=== PATIENT | male | born 1945 | race Caucasian/White ===

== ENCOUNTER → 2022-07-29 | Outpatient (CLI) | payer OTHER | LOC: M PLAIMG 12:03 | PROVIDERS: ATTEND Student in an Organized Health Care Education/Training Program | DX: F03.90 Unspecified dementia, unspecified severity, without behavioral disturbance, psychotic disturbance, mood disturbance, and anxiety (principal) ==

== ENCOUNTER 2022-08-12 07:36 | Inpatient (IN) | payer OTHER, MEDICARE ==
[~2022-08-12] VITALS: Ht 167.6 cm; Wt 81.0 kg
[2022-08-12] MEDS ORDERED: ACETAMINOPHEN TAB 650MG DOSE (2X325MG) PO ONE (08:25)
[2022-08-12 08:45] LABS: BASO % 0.2 % (0.0-1.0); HEMATOCRIT 35.1 % (42.0-52.0); HEMOGLOBIN 11.9 g/dl (13.5-17.5); LYMPH # 0.5 10^3/uL (1.5-5.0); LYMPH % 10.6 % (24.0-44.0); MEAN CORPUSCULAR HEMOGLOBIN 29.9 pg (27.0-33.0); MEAN CORPUSCULAR HGB CONC 33.9 g/dl (32.0-36.5); MEAN CORPUSCULAR VOLUME 88.2 fl (80.0-96.0); MONO # 0.5 10^3/uL (0.0-0.8); NEUTROPHILS # 3.8 10^3/uL (1.5-8.5); NEUTROPHILS % 77.8 % (36.0-66.0); PLATELET COUNT, AUTOMATED 106 10^3/uL (150-450); RED BLOOD COUNT 3.98 10^6/uL (4.30-6.10); WHITE BLOOD COUNT 4.9 10^3/uL (4.0-10.0)
[2022-08-12 09:21] LABS: ALBUMIN 3.2 G/DL (3.2-5.2)
[2022-08-12 09:26] LABS: CALCIUM LEVEL 8.2 MG/DL (8.3-10.6)
[2022-08-12 09:28] LABS: BILIRUBIN,DIRECT 0.3 MG/DL (<0.4); BILIRUBIN,TOTAL 0.6 MG/DL (0.3-1.2); CREATININE FOR GFR 1.37 MG/DL (0.70-1.30); GLOMERULAR FILTRATION RATE 53.8 (>42)
[2022-08-12] MEDS ORDERED: NS 500 ML IV ONE (10:40)
[2022-08-12 11:35] LABS: INR 1.09; PARTIAL THROMBOPLASTIN TIME 29.9 SECONDS (24.8-34.2); PROTHROMBIN TIME 14.3 SECONDS (12.5-14.5)
[2022-08-12] MEDS: PANTOPRAZOLE 40MG VIAL IV SCH (12:15)
[2022-08-12 12:18] LABS: FERRITIN 254.9 NG/ML (10.5-307.3)
[2022-08-12] MEDS ORDERED: ASPI81CH33 PO ×2 (12:43→13:18)
[2022-08-12] MEDS ORDERED: REMDESIVIR 200 MG in NS 250 ML IV ONE (13:00)
[2022-08-12] MEDS ORDERED: BUPR75TA5 PO (13:18)
[2022-08-12] MEDS ORDERED: GLIP5TAB20 PO (13:18)
[2022-08-12] MEDS ORDERED: ATOR40TA75 PO (13:18)
[2022-08-12] MEDS ORDERED: MEMA10TA19 PO (13:18)
[2022-08-12] MEDS ORDERED: METF-877 PO (13:18)
[2022-08-12] MEDS ORDERED: FLOM0.4C39 PO (13:18)
[2022-08-12] MEDS ORDERED: HYDR-3490 PO (13:18)
[2022-08-12] MEDS ORDERED: SERT25TA85 PO (13:18)
[2022-08-12] MEDS ORDERED: DONE10TA90 PO (13:18)
[2022-08-12] MEDS ORDERED: LISI20TA33 PO (13:18)
[2022-08-12] MEDS ORDERED: PATIENT COMMENT (13:19)
[2022-08-12] MEDS ORDERED: HOME MED LIST COMPLETE! XX SCH (13:20)
[2022-08-12] MEDS ORDERED: GLUCAGON INJ 1MG VIAL SC PRN (13:40)
[2022-08-12] MEDS ORDERED: GLUCOSE 4GM CHEW TABLET PO PRN (13:40)
[2022-08-12] MEDS ORDERED: DEXTROSE 50% 50 ML SYRINGE IV PRN (13:40)
[2022-08-12] MEDS ORDERED: SODIUM CHLORIDE 0.9% INJ 10 ML SYR IV ONE (14:00)
[2022-08-12 18:00] VITALS: BP 166/89
[2022-08-12 18:15] VITALS: O2SAT 92
[2022-08-12] MEDS: INSULIN LISPRO (NovoLOG) PER UNIT SC SCH ×2 (18:33→21:00)
[2022-08-12] MEDS: ACETAMINOPHEN TAB 650MG DOSE (2X325MG) PO PRN (18:44)
[2022-08-12 20:00] VITALS: O2SAT 94
[2022-08-12] MEDS ORDERED: glipiZIDE XL 5 MG TABCR PO SCH (21:00)
[2022-08-12] MEDS: ATORVASTATIN 20 MG TAB PO SCH (22:06)
[2022-08-12] MEDS: TAMSULOSIN 0.4 MG CAP PO SCH (22:06)
[2022-08-12 22:36] VITALS: BP 157/87
[2022-08-13] VITALS (8 sets, daily range): BP systolic 125–146; BP diastolic 79–84; O2SAT 92–95
[2022-08-13 00:47] LABS: VENOUS HCO3 21.9 MEQ/L (23.0-27.0); VENOUS O2 SATURATION 96.9 % (60.0-80.0); VENOUS PARTIAL PRESSURE CO2 34.9 mmHg (38.0-50.0); VENOUS PARTIAL PRESSURE O2 90.4 mmHg (30.0-50.0); VENOUS PH 7.416 UNITS (7.330-7.430); VENOUS STANDARD HCO3 22.8 MEQ/L
[2022-08-13 00:59] LABS: MAGNESIUM LEVEL 1.5 MG/DL (1.8-2.4)
[2022-08-13 01:00] LABS: BLOOD UREA NITROGEN 18 MG/DL (9-23); CALCIUM LEVEL 8.3 MG/DL (8.3-10.6); CARBON DIOXIDE LEVEL 22 MMOL/L (20-31); CHLORIDE LEVEL 104 MMOL/L (98-107); GLOMERULAR FILTRATION RATE > 60.0 (>42); GLUCOSE, FASTING 280 MG/DL (74-106); POTASSIUM SERUM 3.7 MMOL/L (3.5-5.1); SODIUM LEVEL 136 MMOL/L (136-145)
[2022-08-13 01:23] LABS: ETHYL ALCOHOL (ETHANOL) 0.003 % (0.000-0.010)
[2022-08-13 06:24] LABS: BASO % 0.2 % (0.0-1.0); HEMOGLOBIN 12.5 g/dl (13.5-17.5); LYMPH # 1.1 10^3/uL (1.5-5.0); LYMPH % 20.9 % (24.0-44.0); MEAN CORPUSCULAR HEMOGLOBIN 29.6 pg (27.0-33.0); MEAN CORPUSCULAR HGB CONC 33.8 g/dl (32.0-36.5); MEAN CORPUSCULAR VOLUME 87.5 fl (80.0-96.0); MONO # 0.5 10^3/uL (0.0-0.8); MONO % 9.2 % (2.0-8.0); NEUTROPHILS # 3.6 10^3/uL (1.5-8.5); NEUTROPHILS % 69.3 % (36.0-66.0); PLATELET COUNT, AUTOMATED 100 10^3/uL (150-450); RED BLOOD COUNT 4.23 10^6/uL (4.30-6.10); WHITE BLOOD COUNT 5.1 10^3/uL (4.0-10.0)
[2022-08-13 06:39] LABS: MAGNESIUM LEVEL 1.6 MG/DL (1.8-2.4)
[2022-08-13 06:41] LABS: BLOOD UREA NITROGEN 22 MG/DL (9-23); CALCIUM LEVEL 8.3 MG/DL (8.3-10.6); CARBON DIOXIDE LEVEL 24 MMOL/L (20-31); CHLORIDE LEVEL 103 MMOL/L (98-107); CREATININE FOR GFR 1.14 MG/DL (0.70-1.30); GLOMERULAR FILTRATION RATE > 60.0 (>42); GLUCOSE, FASTING 238 MG/DL (74-106); POTASSIUM SERUM 3.7 MMOL/L (3.5-5.1); SODIUM LEVEL 138 MMOL/L (136-145)
[2022-08-13 06:43] LABS: ALBUMIN 2.9 G/DL (3.2-5.2); BILIRUBIN,TOTAL 0.7 MG/DL (0.3-1.2); TOTAL PROTEIN 5.7 G/DL (5.7-8.2)
[2022-08-13 06:44] LABS: BILIRUBIN,DIRECT 0.3 MG/DL (<0.4)
[2022-08-13] MEDS ORDERED: MAG SULF 1GM/100ML (MAG RUN) 1 GM in IV 1 EA IV ONE (08:00)
[2022-08-13] MEDS: ENOXAPARIN 40MG/0.4ML SYRINGE (J1650 PER 10MG) SC SCH (09:04)
[2022-08-13] MEDS: INSULIN LISPRO (NovoLOG) PER UNIT SC SCH ×4 (09:05→20:01)
[2022-08-13] MEDS: ACETAMINOPHEN TAB 650MG DOSE (2X325MG) PO PRN ×2 (09:06→20:24)
[2022-08-13] MEDS: buPROPion 75 MG TAB PO SCH (09:06)
[2022-08-13] MEDS: ASPIRIN 81MG CHEW TABLET PO SCH (09:06)
[2022-08-13] MEDS: TAMSULOSIN 0.4 MG CAP PO SCH ×2 (09:06→20:24)
[2022-08-13] MEDS: MAGNESIUM OXIDE 400MG TAB (MAG-OX) PO SCH ×2 (09:06→20:25)
[2022-08-13] MEDS: MEMANTINE 5MG TABLET (NAMENDA) PO SCH (09:06)
[2022-08-13] MEDS: SERTRALINE HCL 25 MG TABLET PO SCH (09:07)
[2022-08-13] MEDS: PANTOPRAZOLE 40MG VIAL IV SCH (12:47)
[2022-08-13] MEDS: REMDESIVIR 100 MG in NS 250 ML IV SCH (12:49)
[2022-08-13] MEDS ORDERED: OMEG10002 PO (13:39)
[2022-08-13] MEDS ORDERED: VITA100093 PO (13:39)
[2022-08-13] MEDS ORDERED: PATIENT COMMENT (13:40)
[2022-08-13] MEDS: SODIUM CHLORIDE 0.9% INJ 10 ML SYR IV SCH (14:02)
[2022-08-13] MEDS: glipiZIDE XL 5 MG TABCR PO SCH (17:29)
[2022-08-13] MEDS: ATORVASTATIN 20 MG TAB PO SCH (20:25)
[2022-08-14 06:00] VITALS: BP 111/68
[2022-08-14 06:57] LABS: BASO % 0.2 % (0.0-1.0); EOS # 0.1 10^3/uL (0.0-0.5); EOS % 1.3 % (0.0-3.0); HEMATOCRIT 37.5 % (42.0-52.0); HEMOGLOBIN 12.5 g/dl (13.5-17.5); LYMPH # 1.8 10^3/uL (1.5-5.0); LYMPH % 40.3 % (24.0-44.0); MEAN CORPUSCULAR HEMOGLOBIN 29.4 pg (27.0-33.0); MEAN CORPUSCULAR HGB CONC 33.3 g/dl (32.0-36.5); MEAN CORPUSCULAR VOLUME 88.2 fl (80.0-96.0); MONO # 0.4 10^3/uL (0.0-0.8); MONO % 8.1 % (2.0-8.0); NEUTROPHILS # 2.2 10^3/uL (1.5-8.5); NEUTROPHILS % 49.7 % (36.0-66.0); PLATELET COUNT, AUTOMATED 101 10^3/uL (150-450); RED BLOOD COUNT 4.25 10^6/uL (4.30-6.10); WHITE BLOOD COUNT 4.5 10^3/uL (4.0-10.0)
[2022-08-14 07:13] LABS: LDH LACTATE DEHYDROGENASE 209 U/L (120-246); MAGNESIUM LEVEL 1.8 MG/DL (1.8-2.4)
[2022-08-14 07:14] LABS: BILIRUBIN,DIRECT 0.2 MG/DL (<0.4)
[2022-08-14 07:16] LABS: FERRITIN 632.5 NG/ML (10.5-307.3)
[2022-08-14 07:22] LABS: ALBUMIN 2.8 G/DL (3.2-5.2); ALKALINE PHOSPHATASE 60 U/L (46-116); ALT/SGPT 73 U/L (7.0-40); AST/SGOT 84 U/L (<34); BILIRUBIN,TOTAL 0.6 MG/DL (0.3-1.2); BLOOD UREA NITROGEN 25 MG/DL (9-23); CALCIUM LEVEL 7.8 MG/DL (8.3-10.6); CARBON DIOXIDE LEVEL 25 MMOL/L (20-31); CHLORIDE LEVEL 105 MMOL/L (98-107); CPK CREATINE PHOSPHOKINASE 410 U/L (46-171); CREATININE FOR GFR 1.18 MG/DL (0.70-1.30); GLOMERULAR FILTRATION RATE > 60.0 (>42); GLUCOSE, FASTING 170 MG/DL (74-106); POTASSIUM SERUM 4.2 MMOL/L (3.5-5.1); SODIUM LEVEL 139 MMOL/L (136-145); TOTAL PROTEIN 5.5 G/DL (5.7-8.2)
[2022-08-14] MEDS: SERTRALINE HCL 25 MG TABLET PO SCH (08:08)
[2022-08-14] MEDS: TAMSULOSIN 0.4 MG CAP PO SCH ×2 (08:08→21:31)
[2022-08-14] MEDS: ASPIRIN 81MG CHEW TABLET PO SCH (08:08)
[2022-08-14] MEDS: glipiZIDE XL 5 MG TABCR PO SCH ×2 (08:08→17:43)
[2022-08-14] MEDS: INSULIN LISPRO (NovoLOG) PER UNIT SC SCH ×4 (08:08→21:00)
[2022-08-14] MEDS: buPROPion 75 MG TAB PO SCH (08:09)
[2022-08-14] MEDS: ACETAMINOPHEN TAB 650MG DOSE (2X325MG) PO PRN ×2 (08:09→21:31)
[2022-08-14] MEDS: MEMANTINE 5MG TABLET (NAMENDA) PO SCH (08:09)
[2022-08-14] MEDS: ENOXAPARIN 40MG/0.4ML SYRINGE (J1650 PER 10MG) SC SCH (08:10)
[2022-08-14 09:30] VITALS: O2SAT 95
[2022-08-14 12:00] VITALS: O2SAT 97
[2022-08-14] MEDS: PANTOPRAZOLE 40MG VIAL IV SCH (12:42)
[2022-08-14 14:00] VITALS: BP 110/66
[2022-08-14] MEDS: REMDESIVIR 100 MG in NS 250 ML IV SCH (14:51)
[2022-08-14] MEDS: SODIUM CHLORIDE 0.9% INJ 10 ML SYR IV SCH (15:00)
[2022-08-14 16:00] VITALS: O2SAT 97
[2022-08-14 19:48] VITALS: BP 110/66
[2022-08-14] MEDS: ATORVASTATIN 20 MG TAB PO SCH (21:32)
[2022-08-15 06:21] VITALS: BP 137/79
[2022-08-15 06:55] LABS: BASO % 0.2 % (0.0-1.0); EOS # 0.2 10^3/uL (0.0-0.5); EOS % 4.3 % (0.0-3.0); HEMATOCRIT 32.3 % (42.0-52.0); HEMOGLOBIN 11.1 g/dl (13.5-17.5); LYMPH # 1.8 10^3/uL (1.5-5.0); LYMPH % 44.2 % (24.0-44.0); MEAN CORPUSCULAR HEMOGLOBIN 29.4 pg (27.0-33.0); MEAN CORPUSCULAR HGB CONC 34.4 g/dl (32.0-36.5); MEAN CORPUSCULAR VOLUME 85.4 fl (80.0-96.0); MONO # 0.3 10^3/uL (0.0-0.8); MONO % 8.2 % (2.0-8.0); NEUTROPHILS # 1.8 10^3/uL (1.5-8.5); NEUTROPHILS % 42.6 % (36.0-66.0); RED BLOOD COUNT 3.78 10^6/uL (4.30-6.10); WHITE BLOOD COUNT 4.1 10^3/uL (4.0-10.0)
[2022-08-15 07:28] LABS: MAGNESIUM LEVEL 1.8 MG/DL (1.8-2.4)
[2022-08-15 07:29] LABS: BLOOD UREA NITROGEN 22 MG/DL (9-23); CALCIUM LEVEL 7.8 MG/DL (8.3-10.6); CARBON DIOXIDE LEVEL 24 MMOL/L (20-31); CHLORIDE LEVEL 105 MMOL/L (98-107); CREATININE FOR GFR 1.04 MG/DL (0.70-1.30); GLOMERULAR FILTRATION RATE > 60.0 (>42); GLUCOSE, FASTING 141 MG/DL (74-106); POTASSIUM SERUM 3.7 MMOL/L (3.5-5.1); SODIUM LEVEL 138 MMOL/L (136-145)
[2022-08-15 07:47] LABS: PLATELET COUNT, AUTOMATED 92 10^3/uL (150-450)
[2022-08-15] MEDS: INSULIN LISPRO (NovoLOG) PER UNIT SC SCH ×4 (08:45→20:31)
[2022-08-15] MEDS: MEMANTINE 5MG TABLET (NAMENDA) PO SCH (08:46)
[2022-08-15] MEDS: ASPIRIN 81MG CHEW TABLET PO SCH (08:46)
[2022-08-15] MEDS: buPROPion 75 MG TAB PO SCH (08:46)
[2022-08-15] MEDS: glipiZIDE XL 5 MG TABCR PO SCH ×2 (08:47→18:05)
[2022-08-15] MEDS: SERTRALINE HCL 25 MG TABLET PO SCH (08:49)
[2022-08-15] MEDS: TAMSULOSIN 0.4 MG CAP PO SCH ×2 (08:50→20:30)
[2022-08-15] MEDS: ENOXAPARIN 40MG/0.4ML SYRINGE (J1650 PER 10MG) SC SCH (09:00)
[2022-08-15] MEDS: PANTOPRAZOLE 40MG VIAL IV SCH (12:00)
[2022-08-15 14:00] VITALS: BP 122/63
[2022-08-15 19:48] VITALS: BP 139/70
[2022-08-15] MEDS: diphenhydrAMINE 25MG CAP PO PRN (20:31)
[2022-08-15] MEDS: ATORVASTATIN 20 MG TAB PO SCH (20:31)
[2022-08-15 21:47] VITALS: O2SAT 93
[2022-08-16] VITALS (8 sets, daily range): BP systolic 115–122; BP diastolic 64–74; O2SAT 93–96
[2022-08-16 06:56] LABS: BASO % 0.3 % (0.0-1.0); EOS # 0.1 10^3/uL (0.0-0.5); EOS % 3.7 % (0.0-3.0); HEMATOCRIT 31.4 % (42.0-52.0); HEMOGLOBIN 11.1 g/dl (13.5-17.5); LYMPH # 1.5 10^3/uL (1.5-5.0); LYMPH % 40.1 % (24.0-44.0); MEAN CORPUSCULAR HEMOGLOBIN 30.2 pg (27.0-33.0); MEAN CORPUSCULAR HGB CONC 35.4 g/dl (32.0-36.5); MEAN CORPUSCULAR VOLUME 85.6 fl (80.0-96.0); MONO # 0.4 10^3/uL (0.0-0.8); MONO % 9.5 % (2.0-8.0); NEUTROPHILS # 1.7 10^3/uL (1.5-8.5); NEUTROPHILS % 45.9 % (36.0-66.0); PLATELET COUNT, AUTOMATED 100 10^3/uL (150-450); RED BLOOD COUNT 3.67 10^6/uL (4.30-6.10); WHITE BLOOD COUNT 3.8 10^3/uL (4.0-10.0)
[2022-08-16 07:15] LABS: CPK CREATINE PHOSPHOKINASE 236 U/L (46-171)
[2022-08-16 07:16] LABS: LDH LACTATE DEHYDROGENASE 180 U/L (120-246)
[2022-08-16 07:17] LABS: ALBUMIN 2.8 G/DL (3.2-5.2); ALKALINE PHOSPHATASE 61 U/L (46-116); ALT/SGPT 59 U/L (7.0-40); AST/SGOT 53 U/L (<34); BILIRUBIN,DIRECT 0.3 MG/DL (<0.4); BILIRUBIN,TOTAL 0.6 MG/DL (0.3-1.2); BLOOD UREA NITROGEN 16 MG/DL (9-23); CALCIUM LEVEL 8.2 MG/DL (8.3-10.6); CARBON DIOXIDE LEVEL 24 MMOL/L (20-31); CHLORIDE LEVEL 106 MMOL/L (98-107); CREATININE FOR GFR 0.97 MG/DL (0.70-1.30); GLOMERULAR FILTRATION RATE > 60.0 (>42); GLUCOSE, FASTING 158 MG/DL (74-106); POTASSIUM SERUM 3.8 MMOL/L (3.5-5.1); SODIUM LEVEL 140 MMOL/L (136-145); TOTAL PROTEIN 5.3 G/DL (5.7-8.2)
[2022-08-16 07:18] LABS: FERRITIN 427.3 NG/ML (10.5-307.3)
[2022-08-16] MEDS: ASPIRIN 81MG CHEW TABLET PO SCH (08:33)
[2022-08-16] MEDS: buPROPion 75 MG TAB PO SCH (08:33)
[2022-08-16] MEDS: TAMSULOSIN 0.4 MG CAP PO SCH ×2 (08:33→20:11)
[2022-08-16] MEDS: SERTRALINE HCL 25 MG TABLET PO SCH (08:33)
[2022-08-16] MEDS: MEMANTINE 5MG TABLET (NAMENDA) PO SCH (08:34)
[2022-08-16] MEDS: glipiZIDE XL 5 MG TABCR PO SCH ×2 (08:34→17:43)
[2022-08-16] MEDS: ENOXAPARIN 40MG/0.4ML SYRINGE (J1650 PER 10MG) SC SCH (08:35)
[2022-08-16] MEDS: diphenhydrAMINE 25MG CAP PO PRN ×2 (08:35→20:11)
[2022-08-16] MEDS: INSULIN LISPRO (NovoLOG) PER UNIT SC SCH ×4 (08:36→20:11)
[2022-08-16] MEDS: ACETAMINOPHEN TAB 650MG DOSE (2X325MG) PO PRN ×2 (08:36→17:47)
[2022-08-16] MEDS: PANTOPRAZOLE 40MG VIAL IV SCH (12:43)
[2022-08-16] MEDS: ATORVASTATIN 20 MG TAB PO SCH (20:11)
[2022-08-17] VITALS: O2SAT 97
[2022-08-17] MEDS ORDERED: diphenhydrAMINE CREAM 30GM TOP PRN (01:10)
[2022-08-17 06:00] VITALS: BP 157/79
[2022-08-17 06:04] LABS: BASO % 0.3 % (0.0-1.0); EOS # 0.1 10^3/uL (0.0-0.5); EOS % 3.3 % (0.0-3.0); HEMATOCRIT 32.9 % (42.0-52.0); LYMPH # 1.3 10^3/uL (1.5-5.0); LYMPH % 34.4 % (24.0-44.0); MEAN CORPUSCULAR HEMOGLOBIN 29.3 pg (27.0-33.0); MEAN CORPUSCULAR HGB CONC 33.4 g/dl (32.0-36.5); MEAN CORPUSCULAR VOLUME 87.5 fl (80.0-96.0); MONO # 0.3 10^3/uL (0.0-0.8); MONO % 8.5 % (2.0-8.0); NEUTROPHILS # 1.9 10^3/uL (1.5-8.5); NEUTROPHILS % 52.7 % (36.0-66.0); RED BLOOD COUNT 3.76 10^6/uL (4.30-6.10); WHITE BLOOD COUNT 3.7 10^3/uL (4.0-10.0)
[2022-08-17 06:06] LABS: PLATELET COUNT, AUTOMATED 98 10^3/uL (150-450)
[2022-08-17 06:24] LABS: BLOOD UREA NITROGEN 13 MG/DL (9-23); CALCIUM LEVEL 8.2 MG/DL (8.3-10.6); CARBON DIOXIDE LEVEL 26 MMOL/L (20-31); CHLORIDE LEVEL 106 MMOL/L (98-107); CREATININE FOR GFR 0.97 MG/DL (0.70-1.30); GLOMERULAR FILTRATION RATE > 60.0 (>42); GLUCOSE, FASTING 111 MG/DL (74-106); POTASSIUM SERUM 3.5 MMOL/L (3.5-5.1); SODIUM LEVEL 141 MMOL/L (136-145)
[2022-08-17] MEDS: INSULIN LISPRO (NovoLOG) PER UNIT SC SCH ×2 (07:30→12:01)
[2022-08-17 08:07] VITALS: BP 157/79
[2022-08-17] MEDS: TAMSULOSIN 0.4 MG CAP PO SCH (08:07)
[2022-08-17] MEDS: MEMANTINE 5MG TABLET (NAMENDA) PO SCH (08:07)
[2022-08-17] MEDS: ASPIRIN 81MG CHEW TABLET PO SCH (08:07)
[2022-08-17] MEDS: buPROPion 75 MG TAB PO SCH (08:07)
[2022-08-17] MEDS: SERTRALINE HCL 25 MG TABLET PO SCH (08:07)
[2022-08-17] MEDS: glipiZIDE XL 5 MG TABCR PO SCH (08:07)
[2022-08-17] MEDS: ENOXAPARIN 40MG/0.4ML SYRINGE (J1650 PER 10MG) SC SCH (08:08)
[2022-08-17] MEDS: PANTOPRAZOLE 40MG VIAL IV SCH (12:01)
== END 2022-08-17 17:40 | disposition home health service (06) | DRG 178 ==
LOC: M ED 07:36 → EDBD 07:36 → M ED INP 10:23 → ENRESERV 17:07 → M MS5PR 17:50
PROVIDERS: ADMIT Internal Medicine Nephrology; ATTEND Internal Medicine Nephrology
DX: U07.1 COVID-19 (principal); N17.9 Acute kidney failure, unspecified; E11.9 Type 2 diabetes mellitus without complications; F03.90 Unspecified dementia, unspecified severity, without behavioral disturbance, psychotic disturbance, mood disturbance, and anxiety; I10 Essential (primary) hypertension; Z79.82 Long term (current) use of aspirin; Z79.899 Other long term (current) drug therapy; E78.5 Hyperlipidemia, unspecified; N40.0 Benign prostatic hyperplasia without lower urinary tract symptoms; F32.A Depression, unspecified; D69.6 Thrombocytopenia, unspecified

== ENCOUNTER 2023-01-06 07:01 | Day surgery (SDC) | payer OTHER ==
[~2023-01-06] VITALS: Ht 175.3 cm; Wt 68.9 kg
[~2023-01-06 07:01] MED LIST: ASPI81CH33 PO; ATOR40TA75 PO; ATOR80TA59 PO; BUPR75TA5 PO; DONE10TA90 PO; FLOM0.4C39 PO; GLIP5TAB20 PO; HYDR-3490 PO; LISI20TA33 PO; LISI40TA4 PO; MEMA10TA19 PO; METF-839 PO; METF-877 PO; OMEG10002 PO; PATIENT COMMENT; SERT-141 PO; SERT25TA85 PO; VITA100093 PO; VITA200044 PO
[2023-01-06] MEDS ORDERED: LR 1,000 ML IV SCH (08:50)
[2023-01-06] MEDS ORDERED: INSULIN LISPRO (NovoLOG) PER UNIT SC PRN ×2 (09:00→09:45)
[2023-01-06] MEDS ORDERED: ceFAZolin SOD 2 GM in IV 1 EA IV ONE (09:20)
[2023-01-06] MEDS ORDERED: LIDOCAINE 1% MDV 20ML VIAL As Ordered ONE (09:23)
[2023-01-06] MEDS ORDERED: BUPIVACAINE HCL 0.5% 30ML VIAL As Ordered ONE (09:24)
[2023-01-06] MEDS ORDERED: LIDOCAINE 2% 100MG/5ML SDV (FOR ANES.) As Ordered ONE (09:27)
[2023-01-06] MEDS ORDERED: fentaNYL 100 MCG/2 ML INJECTION As Ordered ONE (09:27)
[2023-01-06] MEDS ORDERED: propofoL 200 MG/20 ML VIAL As Ordered ONE (09:27)
[2023-01-06 11:25] VITALS: BP 148/70
== END 2023-01-06 11:25 | disposition home or self-care (01) ==
LOC: M SDC 07:01
PROVIDERS: ATTEND Podiatrist Foot & Ankle Surgery
DX: M89.8X7 Other specified disorders of bone, ankle and foot (principal); I10 Essential (primary) hypertension; E78.5 Hyperlipidemia, unspecified; E11.9 Type 2 diabetes mellitus without complications; F32.A Depression, unspecified; Z86.73 Personal history of transient ischemic attack (TIA), and cerebral infarction without residual deficits; N40.0 Benign prostatic hyperplasia without lower urinary tract symptoms; F03.90 Unspecified dementia, unspecified severity, without behavioral disturbance, psychotic disturbance, mood disturbance, and anxiety; Z87.891 Personal history of nicotine dependence; Z79.82 Long term (current) use of aspirin; Z79.84 Long term (current) use of oral hypoglycemic drugs; Z79.899 Other long term (current) drug therapy
CPT/HCPCS: 28288; 88305; J0690; J3010